=== PATIENT | female | born 1960 | race Caucasian/White ===

== ENCOUNTER → 2016-07-12 | Outpatient (CLI) | payer OTHER ==
[2016-07-12 14:48] LABS: BASOPHIL # 0.1 K/uL (0.0-0.2); BASOPHIL % 0.6 %; EOSINOPHIL # 0.2 K/uL (0.0-0.5); HEMATOCRIT 34.2 % (33.0-46.0); HEMOGLOBIN 11.5 g/dL (10.0-15.0); IMMATURE GRANULOCYTE % 0.3 %; LYMPHOCYTE # 2.6 K/uL (0.8-4.0); MCH 29.9 pg (27.0-34.0); MCHC 33.6 gm/dL (32.0-36.5); MCV 89.1 fl (83.0-98.0); MONOCYTE % 12.6 %; MPV 10.9 fl (9.4-12.4); NEUTROPHIL % 51.5 %; NRBC % 0 /100WBC (0-0.00); PLATELET COUNT 320 K/uL (150-450); RDW-CV 12.8 % (11.9-14.6); WBC 7.9 K/uL (4.0-11.0)
[2016-07-12 14:56] LABS: RBC 3.84 M/uL (3.50-5.50)
[2016-07-12 15:05] LABS: ALBUMIN 3.7 gm/dL (3.5-5.0); ALK PHOS 102 IU/L (33-138); ALT 39 IU/L (12-78); ANION GAP 12.5 (10.0-19.0); AST 21 IU/L (10-40); BLOOD UREA NITROGEN 20 mg/dL (6-24); CALCIUM 8.1 mg/dL (8.5-10.5); CHLORIDE 109 mMol/L (96-110); CO2 24 mMol/L (22-32); CPK 103 IU/L (21-215); CREATININE 0.8 mg/dL (0.5-1.1); ESTIMATED GFR (MDRD EQUATION) > 60; POTASSIUM 3.5 mMol/L (3.7-5.1); SODIUM 142 mMol/L (135-145); TOTAL BILIRUBIN 0.2 mg/dL (0.0-1.5); TOTAL PROTEIN 7.2 g/dL (6.0-8.4)
== END | disposition disaster alternative care site (69) ==
LOC: LNHI 14:42
PROVIDERS: Internal Medicine Cardiovascular Disease
DX: R07.9 Chest pain, unspecified (principal)

== ENCOUNTER → 2016-07-27 | Outpatient (CLI) | payer OTHER ==
--- NOTE | ~2016-07-27 | ESTC ---
Cardiac Perfusion Imaging Demographics Patient Name CJ Castro Gender Female Patient Number [id number] Race Visit Number [id number] Ethnicity [employer] ID Room Number Accession Number [id number] Height 64 inches Date of 1960 Weight 220 pounds A Interpreting Edgardo Farrell Date of study 07/27/2016 Physician Supervising /MLP Joie Alberto NM Technologist Antonia Castro MD Ordering Physician Joie Alberto Stress Karine Castro MD radiation technician RVT Stress ECG Reading Joie Alberto Nurse Taiwo Castro MD residential case manager Procedure Type: Nuclear Stress Test:Exercise, Cardiolite Stress Test Procedure Start time: 07/27/2016 08:08 Indications: Dyspnea with exertion and Hypertension. Risk Factors The patient risk factors include:obesity, former tobacco use, hypertension and dyslipidemia. Conclusions Summary Perfusion Images: The overall quality of the study is good. Left ventricular cavity is noted to be normal on the stress and normal on the rest images. There is no evidence of abnormal lung activity. The right ventricle is not visualized an cannot be assessed. Impression ECG portion of exercise stress test is clinically negative for ischemia by diagnostic criteria. SUBMAXIMAL EXERCISE STRESS TEST, pt reached 81 % of MPHR (136 bpm) and achieved 7 METS. Poor exercise tolerance and hypertensive response to exercise. Myocardial perfusion imaging is essentially normal. Overall left ventricular systolic function was normal without regional wall motion abnormalities. Calculated LVEF is 71% and TID ratio is 1.19. There are no previous studies for comparison. Stress Protocols Resting ECG Normal sinus rhythm. Pre-stress physical exam: Patient assessed by Dr Salter prior to testing. Stress Protocol:Exercise Predicted HR: 166 bpm ECG Findings No ECG changes suggestive of ischemia. No ECG changes suggestive of ischemia. Arrhythmias No rhythm abnormality. Symptoms Shortness of breath. Stress Interpretation Decreased exercise capacity Hypertensive response to exercise No angina Will titrate lisinopril to 10mg Imaging Results Applied corrections - Motion correction applied High risk findings Summed scores - Summed stress score: 9 - Summed rest score: 11 - Summed difference score: -2 Stress ejection Ejection fraction:70 % EDV :98 ml ESV :29 ml Stroke volume :69 ml LV mass :134 gr Imaging Protocols Rest Stress Isotope:Tc99m Sestamibi IV Isotope: Tc99m Sestamibi IV Isotope dose:15 mCi Isotope dose:43.9 mCi Date:07/27/2016 06:45 Date:07/27/2016 08:43 Technique: SPECT Technique: Gated Supine SPECT Supine Scan Time:45-60 minutes post Scan Time:45-60 minutes post injection injection Medical History Admission Data Admission date: 07/27/2016 Admission Time: 06:24 Hospital Status: Outpatient. Signatures dtt: MACK MENON dtd: 07/27/16 0808 Physician Self Edit
== END | disposition disaster alternative care site (69) ==
LOC: GRAD 06:24
DX: R06.09 Other forms of dyspnea (principal); E66.9 Obesity, unspecified; I10 Essential (primary) hypertension; E78.5 Hyperlipidemia, unspecified; R94.39 Abnormal result of other cardiovascular function study; Z87.891 Personal history of nicotine dependence
CPT/HCPCS: A9500